=== PATIENT | male | born 1955 | race Caucasian/White ===

== ENCOUNTER → 2016-06-22 | Outpatient (CLI) | payer OTHER ==
[~2016-06-22] MED LIST: AMLO-110 PO; ASPI-232 PO; CLR10 PO; LABE1TAB28 PO; LOSA1TAB38 PO; NRN300 PO; PSYL55.43 PO; ZCR40 PO
== END | disposition home or self-care (01) ==
LOC: C.LAB 16:27
PROVIDERS: ATTEND Urology
DX: C61 Malignant neoplasm of prostate (principal)

== ENCOUNTER → 2016-06-27 | Outpatient (CLI) | payer OTHER ==
[~2016-06-27] MED LIST changes: +OPTIRAY 320 IV PRN
[2016-06-27 18:36] LABS: BLOOD UREA NITROGEN 15 mg/dl (7-18); BUN/CREATININE RATIO 13.7 (10-20)
== END | disposition home or self-care (01) ==
LOC: C.LAB 17:33
PROVIDERS: ATTEND Urology
DX: C61 Malignant neoplasm of prostate (principal)

== ENCOUNTER → 2016-07-04 | Outpatient (CLI) | payer OTHER ==
[~2016-07-04] MED LIST changes: -OPTIRAY 320 IV PRN
--- NOTE | 2016-07-04 13:39 | DIAGNOSTIC IMAGING REPORT ---
ABDOMEN AND PELVIS CT WITH IV AND ORAL CONTRAST CT DOSE: 1583.09 mGy.cm HISTORY: Prostate carcinoma prostate carcinoma TECHNIQUE: Multiaxial CT images of the abdomen and pelvis were performed following the use of intravenous and oral contrast. COMPARISON STUDY: None. FINDINGS: Lung bases are clear. Mild fatty infiltration of liver. Gallbladder is negative for distention. 5 mm cyst lower pole right kidney. No evidence for right renal hydronephrosis. The adrenal glands bilaterally are unremarkable. 1.5 cm cyst medial aspect interpolar region left kidney. No evidence for renal hydronephrosis. Bowel pattern within the abdomen and pelvis is considered nonobstructive. There is no significant abdominal or pelvic adenopathy. There is no significant inguinal adenopathy. IMPRESSION: No significant abnormality identified within the abdomen or pelvis. Electronically signed by: Cornelius Yan M.D. 07/04/2016 1:38 PM Dictated Date/Time: 07/04/2016 1:26 PM
--- NOTE | 2016-07-04 16:05 | DIAGNOSTIC IMAGING REPORT ---
WHOLE BODY BONE SCAN HISTORY: Prostate carcinoma C61 Neoplasm of prostate RADIOTRACER: 25.4 mCi Tc-99m MDP STUDY/IMAGES: Planar anterior and posterior whole body imaging was performed 3 hours following the intravenous administration of radiotracer. COMPARISON: None. FINDINGS: Bilateral renal activity is present. Scattered degenerative activity of the joints including knees shoulders and sternoclavicular joints. Patchy increase in activity of the costovertebral joints of the mid to lower thoracic region. This presumably is degenerative, although an MRI of the thoracic spine suggestive confirmation. Also a small focus of increased activity of the infrapatellar aspect of the an anterior left to lesser extent anterior right proximal tibia. This is most likely degenerative. IMPRESSION: 1. Increased activity of the mid to lower thoracic region possibly degenerative, although possibly metastatic disease is not excluded. 2. An MRI of the thoracic spine is suggested as follow-up. 3. Scattered degenerative activity throughout the axial and appendicular skeleton as discussed Electronically signed by: Cornelius Yan M.D. 07/04/2016 4:03 PM Dictated Date/Time: 07/04/2016 4:01 PM
== END | disposition home or self-care (01) ==
LOC: C.CTS 12:07
PROVIDERS: ATTEND Urology
DX: C61 Malignant neoplasm of prostate (principal)

== ENCOUNTER → 2016-07-18 | Outpatient (CLI) | payer OTHER ==
[~2016-07-18] MED LIST changes: +GADAVIST IV PRN
--- NOTE | 2016-07-18 19:41 | DIAGNOSTIC IMAGING REPORT ---
THORACIC SPINE MRI WITH AND WITHOUT CONTRAST HISTORY: Pain ABNORMAL BONE SCAN; PROSTATE CA TECHNIQUE: Multiplanar multisequence MRI of the thoracic spine was performed both before and after the intravenous administration of contrast. COMPARISON: Bone scan dated 07/04/2016 FINDINGS: Signal characteristics of the osseous structures showed no bone marrow infiltrative change. There is considerable degenerative disc changes throughout. There is no compression deformity. Transaxial images throughout the entire thoracic region demonstrate broad-based disc herniation at T12-L1 with a mild central disc herniation at T11-T12. There are moderate degenerative changes of posterior elements throughout. There is no abnormal postcontrast enhancement of significance. IMPRESSION: 1. Study is negative for metastatic bone disease. 2. Bone scan findings of the low thoracic region appear degenerative. 3. Disc herniations at T12-L1 and T11-T12. Electronically signed by: Cornelius Yan M.D. 07/18/2016 7:40 PM Dictated Date/Time: 07/18/2016 7:36 PM
== END | disposition home or self-care (01) ==
LOC: C.MRI 17:46
PROVIDERS: ATTEND Urology
DX: C61 Malignant neoplasm of prostate (principal); M51.25 Other intervertebral disc displacement, thoracolumbar region

== ENCOUNTER → 2017-01-31 | Outpatient (CLI) | payer BC ==
[~2017-01-31] MED LIST changes: -GADAVIST IV PRN
== END | disposition home or self-care (01) ==
LOC: C.LAB 18:40
PROVIDERS: ATTEND Urology
DX: C61 Malignant neoplasm of prostate (principal)

== ENCOUNTER → 2017-08-06 | Outpatient (CLI) | payer BC | END | disposition home or self-care (01) | LOC: C.LAB 18:00 | PROVIDERS: ATTEND Urology | DX: C61 Malignant neoplasm of prostate (principal) ==